=== PATIENT | female | born 1990 | race American Indian/Alaskan Native ===

== ENCOUNTER 2016-10-16 15:32 | Emergency (ER) | payer MEDICAID ==
[2016-10-16 16:13] VITALS: BP 117/72
--- NOTE | 2016-10-16 22:26 | Emergency Department Report ---
Entered by SILVIO CHOI, acting as scribe for ANGELINA FINCH NP. - General Chief complaint: Sore Throat Stated complaint: INSECT BITE/INFECTION Time Seen by Provider: 10/16/16 16:13 Source: patient Mode of arrival: Ambulatory Limitations: No Limitations - History of Present Illness Initial comments: This is 26 y/o female that is nontoxic, well nourished in appearance, no acute signs of distress with no significant PMHx presents to the ED c/o an unknown insect bite on left lower leg for 1 week. Patient states she was bitten by an unknown insect 1 week ago. Rates severity a 7/10. Patient reports associated swelling and erythema to affected area, but she denies fever, chills, nausea, vomiting, numbness, tingling, pus, drainage, chest pain, shortness of breathe. Notes the erythema has been spreading since onset. NKDA. Patient stated she is currently 14 weeks . Patient stated has no issues with and is following up with a OBGYN. Last menstrual cycle was 07/09/2016. complaint: insect bite/sting (unknown insect) Onset/Timin -: week(s) Location: LLE (left lower leg) Severity: moderate Severity scale (0 -10): 7 Quality: burning Consistency: constant Improves with: none Worsens with: none Context: other (unwitnessed insect bite) Associated symptoms: denies other symptoms, other (erythema and swelling to affected area) Treatments Prior to Arrival: none - Related Data Home Medications Medication Instructions Recorded Confirmed Last Taken Pnv with Ca,No.72/Iron/FA [Pnv 1 each PO DAILY 12/18/13 12/11/14 12/10/14 09:00 Plus Multivit Tab] 1 Previous Rx's Medication Instructions Recorded Last Taken Type Cephalexin [Keflex] 500 mg PO Q8HR 7 Days 10/16/16 Unknown Rx Allergies Allergy/AdvReac Type Severity Reaction Status Date / Time No Known Allergies Allergy Verified 10/16/16 16:08 Abscess Boil HPI - HPI Chief Complaint: Sore Throat Stated Complaint: INSECT BITE/INFECTION Time Seen by Provider: 10/16/16 16:13 Duration: 1 Week Location: Lower Extremity (left lower leg) Severity: Moderate (7/10) History: Yes Pain (to affected area on left lower leg), Yes Insect Bite ( possible unwitnessed insect bite), No Fever, No Purulent Drainage, No Numbness, No Foreign Body, No Previous History Home Medications: Home Medications Medication Instructions Recorded Confirmed Last Taken Pnv with Ca,No.72/Iron/FA [Pnv 1 each PO DAILY 12/18/13 12/11/14 12/10/14 09:00 Plus Multivit Tab] 1 Previous Rx's Medication Instructions Recorded Last Taken Type Cephalexin [Keflex] 500 mg PO Q8HR 7 Days 10/16/16 Unknown Rx Allergies/Adverse Reactions: Allergies Allergy/AdvReac Type Severity Reaction Status Date / Time No Known Allergies Allergy Verified 10/16/16 16:08 ED Review of Systems Comment: All other systems reviewed and negative Constitutional: denies: chills, fever Eyes: denies: eye pain, eye discharge, vision change ENT: denies: ear pain, throat pain Respiratory: denies: cough, shortness of breath, wheezing Cardiovascular: denies: chest pain, palpitations Endocrine: no symptoms reported Gastrointestinal: denies: abdominal pain, nausea, vomiting, diarrhea Genitourinary: denies: urgency, dysuria, discharge Musculoskeletal: denies: back pain, joint swelling, arthralgia Skin: other (left lower leg with erythema and swelling). denies: rash, lesions Neurological: denies: headache, weakness, numbness, paresthesias Psychiatric: denies: anxiety, depression Hematological/Lymphatic: denies: easy bleeding, easy bruising ED Past Medical Hx - Past Medical History Hx Hypertension: No Hx Congestive Heart Failure: No Hx Diabetes: No Hx Deep Vein Thrombosis: No Hx Renal Disease: No Hx Sickle Cell Disease: No Hx Seizures: No Hx Asthma: No Hx COPD: No Hx HIV: No - Social History Smoking Status: Never Smoker Substance Use Type: None - Medications Home Medications: Home Medications Medication Instructions Recorded Confirmed Last Taken Type Pnv with Ca,No.72/Iron/FA [Pnv 1 each PO DAILY 12/18/13 12/11/14 12/10/14 09:00 History Plus Multivit Tab] 1 Cephalexin [Keflex] 500 mg PO Q8HR 7 Days 10/16/16 Unknown Rx ED Physical Exam - General Limitations: No Limitations General appearance: alert, in no apparent distress - Head Head exam: Present: atraumatic, normocephalic, normal inspection - Eye Eye exam: Present: normal appearance, PERRL, EOMI. Absent: scleral icterus, conjunctival injection, nystagmus, periorbital swelling, periorbital tenderness Pupils: Present: normal accommodation - ENT ENT exam: Present: normal exam, normal orophraynx, mucous membranes moist, TM's normal bilaterally, normal external ear exam - Neck Neck exam: Present: normal inspection, full ROM. Absent: tenderness, meningismus, lymphadenopathy - Respiratory Respiratory exam: Present: normal lung sounds bilaterally. Absent: respiratory distress, wheezes, rales, rhonchi, stridor, chest wall tenderness, accessory muscle use, decreased breath sounds, prolonged expiratory - Cardiovascular Cardiovascular Exam: Present: regular rate, normal rhythm, normal heart sounds. Absent: bradycardia, tachycardia, irregular rhythm, systolic murmur, diastolic murmur, rubs, gallop - GI/Abdominal GI/Abdominal exam: Present: soft, normal bowel sounds. Absent: distended, tenderness, guarding, rebound, rigid, diminished bowel sounds - Rectal Rectal exam: Present: deferred - Extremities Exam Extremities exam: Present: full ROM, normal capillary refill, other (left lower leg is swollen and warm to touch with surrounding erythema ). Absent: tenderness, pedal edema, joint swelling, calf tenderness - Expanded Lower Extremity Exam Left Hip exam: Present: normal inspection, full ROM, external rotation, internal rotation, pelvic stability. Absent: tenderness, swelling, abrasion, laceration , ecchymosis, deformity, crepidus, dislocation, erythema, shortening Upper Leg exam: Present: normal inspection, full ROM. Absent: tenderness, swelling, abrasion, laceration, ecchymosis, deformity, crepidus, dislocation, erythema Knee exam: Present: normal inspection, full ROM, full knee extension. Absent: tenderness, swelling, abrasion, laceration, ecchymosis, deformity, crepidus, dislocation, erythema, effusion, pain w/ pronation/supination, posterior draw sign, pain/laxity with valgus, pain/laxity with varus Lower Leg exam: Present: full ROM, tenderness, swelling, erythema. Absent: abrasion, laceration, ecchymosis, deformity, crepidus, dislocation, palpable cord, Hitesh's sign Ankle exam: Present: normal inspection, full ROM. Absent: tenderness, swelling , abrasion, laceration, ecchymosis, deformity, crepidus, dislocation, erythema, anterior draw sign Foot/Toe exam: Present: normal inspection, full ROM. Absent: tenderness, swelling, abrasion, laceration, ecchymosis, deformity, crepidus, dislocation, erythema, amputation, puncture wound, foreign body, calcaneal tenderness, tenderness at base of 5th metatarsal, nail avulsion, subungual hematoma Neuro vascular tendon exam: Present: no vascular compromise. Absent: pulse deficit, abnormal cap refill, motor deficit, sensory deficit, tendon deficit, extremity cold to touch, pallor, abnormal 2-point discrimination, decreased fine /light touch, foot drop, peroneal nerve deficit, significant pain with passive ROM of distal joint Gait: Positive: observed and normal 1 - Warm to touch, erythema, and swelling - Back Exam Back exam: Present: normal inspection, full ROM. Absent: tenderness, CVA tenderness (R), CVA tenderness (L), muscle spasm, paraspinal tenderness, vertebral tenderness - Neurological Exam Neurological exam: Present: alert, oriented X3, CN II-XII intact, normal gait, reflexes normal. Absent: motor sensory deficit - Psychiatric Psychiatric exam: Present: normal affect, normal mood - Skin Skin exam: Present: warm, dry, intact. Absent: rash ED Course Vital Signs 10/16/16 16:08 Temperature 98.2 F Pulse Rate 86 Respiratory 18 Rate Blood Pressure 117/72 O2 Sat by Pulse 100 Oximetry - Reevaluation(s) Reevaluation #1: 10/16/16 17:40 Patient is able to speak in full sentences with no signs of distress noted. ED Medical Decision Making - Medical Decision Making Ed course: This is a 26-year-old female that presents for cellulitis 1- patient was examined by myself. Signs and symptoms are consistent with cellulites. patient will be treated with Keflex at d/c. 2- patient was instructed to follow up with her primary care doctor in 3-5 days or symptoms and signs worse return to emergency room as was possible. 3- I outlined the erythema with a permanent marker and instructed patient to observe symptoms of increased redness or swelling return to emergency room if they do exist. 4- At time time of discharge, the patient does not seem toxic or ill in appearance. No acute signs of distress noted. Patient agrees to discharge treatment plan of care. No further questions noted by the patient. ED Disposition Clinical Impression: Cellulitis Qualifiers: Site of cellulitis: extremity Site of cellulitis of extremity: lower extremity Laterality: left Qualified Code(s): L03.116 - Cellulitis of left lower limb Disposition: DC-01 TO HOME OR SELFCARE Is pt being admited?: No Does the pt Need Aspirin: No Condition: Stable Instructions: Cellulitis (ED), Cephalexin (By mouth) Additional Instructions: follow up with your primary care doctor in 3-5 days or symptoms and signs worse return to emergency room as was possible. observe symptoms of increased redness or swelling passed permanent marker and return to emergency room if these exist. Prescriptions: Cephalexin [Keflex] 500 mg PO Q8HR 7 Days Referrals: PRIMARY MD ELISHA [Primary Care Provider] - 3-5 Days CODY MORGAN MD [Staff Physician] - 3-5 Days [facility] - 3-5 Days [facility] [Outside] - 3-5 Days Forms: Work/School Release Form(ED) This documentation as recorded by the STEPH holm JASMINE,accurately reflects the service I personally performed and the decisions made by ,ANGELINA FINCH, TAX SERVICES SPECIALIST.
== END 2016-10-16 18:10 | disposition home or self-care (01) ==
LOC: ED 15:32
DX: S80.862A Insect bite (nonvenomous), left lower leg, initial encounter (principal); L03.116 Cellulitis of left lower limb; W57.XXXA Bitten or stung by nonvenomous insect and other nonvenomous arthropods, initial encounter; Y93.89 Activity, other specified; Y92.89 Other specified places as the place of occurrence of the external cause; Y99.8 Other external cause status
CPT/HCPCS: 99282

== ENCOUNTER 2016-11-23 15:44 | Emergency (ER) | payer MEDICAID ==
[2016-11-23 17:23] VITALS: BP 132/72
--- NOTE | 2016-11-23 17:50 | Emergency Department Report ---
ED Rash HPI - HPI Chief Complaint: Skin Rash Stated Complaint: CELLULITIS TO LEGS Time Seen by Provider: 11/23/16 17:41 Duration: over 1 week Location: Lower Extremities Suspected Cause: Unknown Rash Symptoms: Yes Itching, No Facial Swelling, No Tongue/Oral Swelling, No Breathing Difficulties, No Choking Sensation, No Wheezing/Dyspnea, No Peeling, No Blistering, No Fever, No Lightheaded, No Malaise, No Myalgias Severity: mild ED Review of Systems ROS: Stated complaint: CELLULITIS TO LEGS Other details as noted in HPI Constitutional: denies: chills, fever Eyes: denies: eye pain ENT: denies: ear pain, throat pain Gastrointestinal: denies: abdominal pain, nausea Musculoskeletal: denies: back pain, arthralgia Skin: rash. denies: change in color ED Past Medical Hx - Past Medical History Hx Hypertension: No Hx Congestive Heart Failure: No Hx Diabetes: No Hx Deep Vein Thrombosis: No Hx Renal Disease: No Hx Sickle Cell Disease: No Hx Seizures: No Hx Asthma: No Hx COPD: No Hx HIV: No - Social History Smoking Status: Never Smoker Substance Use Type: None - Medications Home Medications: Home Medications Medication Instructions Recorded Confirmed Last Taken Type Pnv with Ca,No.72/Iron/FA [Pnv 1 each PO DAILY 12/18/13 12/11/14 12/10/14 09:00 History Plus Multivit Tab] 1 Cephalexin [Keflex] 500 mg PO Q8HR 7 Days 10/16/16 Unknown Rx Hydrocortisone 1% [Hydrocortisone 1 applicatio TP BID #1 tube 11/23/16 Unknown Rx 1% CREAM] Rash Exam - Exam General: Vital signs noted. No distress. Alert and acting appropriately. HEENT: No Periorbital Edema, No Conjuctival Injection, No Chemosis, No Perioral Edema, No Tongue Edema, No Uvular Edema, No Compromised Airway, No Drooling Lungs: Yes Good Air Exchange, No Wheezes, No Ronchi, No Stridor, No Cough, No Labored Respirations, No Retractions, No Use of Accessory Muscles, No Other Abnormal Lung Sounds Skin: Yes Maculopapular Rash, Yes Excoriations, No Urticarial Rash, No Morbilliform rash, No Weeping, No Tenderness, No Erythema, No Edema, No Encrustations, No Other Other: Positive: Neurologic Normal, Musculoskeletal Normal ED Course Vital Signs 11/23/16 17:19 Temperature 98.3 F Pulse Rate 103 H Respiratory 16 Rate Blood Pressure 132/72 O2 Sat by Pulse 98 Oximetry ED Medical Decision Making - Medical Decision Making Patient with rash on lower legs consistent with eczema. Patient was recently on antibiotics without any improvement and rash. Plan to treat with topical steroids and will discharge patient home. Discussed risks and benefits of steroids and her situation given that she is . Patient understands and will use the low dose hydrocortisone. Portions of this chart were dictated with dictation software. There may be dictation errors contained within this note. Critical care attestation.: If time is entered above; I have spent that time in minutes in the direct care of this critically ill patient, excluding procedure time. ED Disposition Clinical Impression: Eczema Disposition: DC-01 TO HOME OR SELFCARE Is pt being admited?: No Condition: Stable Instructions: Eczema (ED) Prescriptions: Hydrocortisone 1% [Hydrocortisone 1% CREAM] 1 applicatio TP BID #1 tube Referrals: PRIMARY CARE, [Primary Care Provider] - 3-5 Days
== END 2016-11-23 19:36 | disposition home or self-care (01) ==
LOC: ED 15:44
DX: L30.9 Dermatitis, unspecified (principal)
CPT/HCPCS: 99282

== ENCOUNTER 2018-12-24 20:15 | Emergency (ER) | payer MEDICAID, OTHER ==
--- NOTE | 2018-12-24 20:44 | Event Note ---
ED Screening Note Date of service: 12/24/18 Time: 20:41 ED Screening Note: 28 y/o female comes in with abdominal pain since 2 pm. Pain located middle. Nausea. No fever no chill. LMP 11/14/18. . No vag discharge no vag bleeding. This initial assessment/diagnostic orders/clinical plan/treatment(s) is/are subject to change based on patients health status, clinical progression and re- assessment by fellow clinical providers in the ED. Further treatment and workup at subsequent clinical providers discretion. Patient/guardian urged not to elope from the ED as their condition may be serious if not clinically assessed and managed. Initial orders include:
[2018-12-24 21:19] LABS: Basophils # (Auto) 0.1 K/mm3 (0.0-0.1); Basophils % (Auto) 0.9 % (0.0-1.8); Eosinophils # (Auto) 0.1 K/mm3 (0.0-0.4); Hemoglobin 10.4 gm/dl (10.1-14.3); Lymphocytes # (Auto) 1.5 K/mm3 (1.2-5.4); Lymphocytes % (Auto) 13.9 % (13.4-35.0); Mean Corpuscular HGB Conc 32 % (30-34); Mean Corpuscular Volume 76 fl (79-97); Monocytes # (Auto) 0.8 K/mm3 (0.0-0.8); Monocytes % (Auto) 7.7 % (0.0-7.3); Platelet Count 317 K/mm3 (140-440); Red Blood Count 4.35 M/mm3 (3.65-5.03); Red Cell Distribution Width 19.4 % (13.2-15.2)
[2018-12-24 21:43] LABS: Alanine Aminotransferase 10 units/L (7-56); Albumin 4.4 g/dL (3.9-5); BUN/Creatinine Ratio 22; Blood Urea Nitrogen 13 mg/dL (7-17); Calcium 8.9 mg/dL (8.4-10.2); Hemolysis Index 0
--- NOTE | 2018-12-24 21:56 | Emergency Department Report ---
ED Abdominal Pain HPI - General Chief Complaint: Abdominal Pain Stated Complaint: SEVERE ABDOMINAL PAIN/HERNIA Time Seen by Provider: 12/24/18 21:45 Source: patient Mode of arrival: Ambulatory Limitations: No Limitations - History of Present Illness Initial Comments: Patient is a 28-year-old female that presents emergency room with complaints of abdominal pain. Patient states abdominal pain is in her umbilical region at the hernia site. Patient states had umbilical hernia for many years. Patient states that the hernia was hard. MD Complaint: abdominal pain -: Sudden Location: periumbilical Radiation: none Migration to: no migration Severity: severe Severity scale (0 -10): 10 Quality: stabbing Consistency: constant Improves With: rest Worsens With: movement Associated Symptoms: denies: nausea, vomiting, diarrhea, fever, chills, constipation, dysuria, hematemesis, hematochezia, melena, hematuria, anorexia, syncope - Related Data LMP (females 10-50): last week Home Medications Medication Instructions Recorded Confirmed Last Taken Pnv,Calcium 72/Iron/Folic Acid 1 each PO DAILY 12/18/13 12/11/14 12/10/14 09:00 [Pnv Plus Multivit Tab] 1 Previous Rx's Medication Instructions Recorded Last Taken Type cephALEXin [Keflex] 500 mg PO Q8HR 7 Days cap 10/16/16 Unknown Rx Hydrocortisone 1% [Hydrocortisone 1 applicatio TP BID #1 tube 11/23/16 Unknown Rx 1% CREAM] metroNIDAZOLE [Flagyl] 500 mg PO Q12HR 10 Days #20 tab 12/24/18 Unknown Rx Allergies Allergy/AdvReac Type Severity Reaction Status Date / Time latex Allergy Hives Verified 11/23/16 17:19 ED Review of Systems ROS: Stated complaint: SEVERE ABDOMINAL PAIN/HERNIA Other details as noted in HPI Constitutional: denies: chills, fever Eyes: denies: eye pain, eye discharge, vision change ENT: denies: ear pain, throat pain Respiratory: denies: cough, shortness of breath, wheezing Cardiovascular: denies: chest pain, palpitations Endocrine: no symptoms reported Gastrointestinal: abdominal pain. denies: nausea, diarrhea Genitourinary: denies: urgency, dysuria, discharge Musculoskeletal: denies: back pain, joint swelling, arthralgia Skin: denies: rash, lesions Neurological: denies: headache, weakness, paresthesias Psychiatric: denies: anxiety, depression Hematological/Lymphatic: denies: easy bleeding, easy bruising ED Past Medical Hx - Past Medical History Previous Medical History?: No Hx Hypertension: No Hx Congestive Heart Failure: No Hx Diabetes: No Hx Deep Vein Thrombosis: No Hx Renal Disease: No Hx Sickle Cell Disease: No Hx Seizures: No Hx Asthma: No Hx COPD: No Hx HIV: No - Surgical History Past Surgical History?: No - Family History Family history: no significant - Social History Smoking Status: Never Smoker Substance Use Type: None - Medications Home Medications: Home Medications Medication Instructions Recorded Confirmed Last Taken Type Pnv,Calcium 72/Iron/Folic Acid 1 each PO DAILY 12/18/13 12/11/14 12/10/14 09:00 History [Pnv Plus Multivit Tab] 1 cephALEXin [Keflex] 500 mg PO Q8HR 7 Days cap 10/16/16 Unknown Rx Hydrocortisone 1% [Hydrocortisone 1 applicatio TP BID #1 tube 11/23/16 Unknown Rx 1% CREAM] metroNIDAZOLE [Flagyl] 500 mg PO Q12HR 10 Days #20 tab 12/24/18 Unknown Rx ED Physical Exam - General Limitations: No Limitations General appearance: alert, in no apparent distress - Head Head exam: Present: atraumatic, normocephalic - Eye Eye exam: Present: normal appearance - ENT ENT exam: Present: mucous membranes moist - Neck Neck exam: Present: normal inspection - Respiratory Respiratory exam: Present: normal lung sounds bilaterally. Absent: respiratory distress - Cardiovascular Cardiovascular Exam: Present: regular rate, normal rhythm. Absent: systolic mu rmur, diastolic murmur, rubs, gallop - GI/Abdominal GI/Abdominal exam: Present: soft, tenderness (over umbilical hernia site but hernias completely reducible.), normal bowel sounds - Extremities Exam Extremities exam: Present: normal inspection - Back Exam Back exam: Present: normal inspection - Neurological Exam Neurological exam: Present: alert, oriented X3 - Psychiatric Psychiatric exam: Present: normal affect, normal mood - Skin Skin exam: Present: warm, dry, intact, normal color. Absent: rash ED Course Vital Signs 12/24/18 12/24/18 12/24/18 20:41 21:50 22:01 Temperature 98.2 F Pulse Rate 67 Respiratory 16 18 Rate Blood Pressure 119/74 121/76 O2 Sat by Pulse 100 100 100 Oximetry 12/24/18 12/25/18 22:35 01:00 Temperature 98.2 F Pulse Rate 67 Respiratory Rate Blood Pressure 121/76 O2 Sat by Pulse 90 90 Oximetry ED Medical Decision Making - Lab Data Result diagrams: 12/24/18 21:05 12/24/18 21:05 - Radiology Data Radiology results: report reviewed CT abdomen pelvis w con INDICATION / CLINICAL INFORMATION: abs pain. ttp over hernia. TECHNIQUE: All CT scans at this location are performed using CT dose reduction for ALARA by means of automated exposure control. COMPARISON: None available. FINDINGS: Limited lower thoracic images are negative. ABDOMEN: The gallbladder, liver, spleen, pancreas and kidneys are normal. No small bowel dilatation. Fat-containing umbilical hernia noted. There is a edema of the transverse colon. Pelvis: The appendix is normal. There are no dependent fluid collections seen within the pelvis. No skeletal abnormality. IMPRESSION: 1. Mild edematous changes in the transverse colon are suggestive of nonspecific colitis. 2. Nonobstructing umbilical hernia containing fat. - Medical Decision Making Is a 28-year-old female that presents emergency room with complaints of abdominal pain. Patient ago. It is periumbilical. Patient has an umbilical hernia. Patient's bilirubin is reproducible. Patient's CT shows a fat filled umbilical hernia and colitis. Patient given antibiotics. Patient stable for discharge. Patient discharged home. Prior to discharge patient complaining of mild nausea and pain. Patient was given Zofran and Toradol. - Differential Diagnosis gastroenteritis. Incarcerated hernia. Abdominal pain. Critical care attestation.: If time is entered above; I have spent that time in minutes in the direct care of this critically ill patient, excluding procedure time. ED Disposition Clinical Impression: Colitis Abdominal pain Qualifiers: Abdominal location: periumbilical Qualified Code(s): R10.33 - Periumbilical pain Umbilical hernia Qualifiers: Obstruction and gangrene presence: without obstruction or gangrene Qualified Code(s): K42.9 - Umbilical hernia without obstruction or gangrene Disposition: -01 TO HOME OR SELFCARE Is pt being admited?: No Does the pt Need Aspirin: No Condition: Stable Instructions: Umbilical Hernia (ED), Abdominal Pain (ED), Infectious Colitis (ED) Additional Instructions: Patient to follow-up with primary care in 2-3 days. patient To follow up with agricultural pilot in 2-3 days. Patient to return to ER if condition worsens. Patient to take medications as directed. Patient to follow-up with Gen. surgery, Dr. Aleman in 2-3 days. Patient to take Tylenol or ibuprofen when nece ssary for pain. Patient to eat a brat diet. Patient to rest. Patient to increase water. Prescriptions: metroNIDAZOLE [Flagyl] 500 mg PO Q12HR 10 Days #20 tab Referrals: RANDY ALEMAN MD [Staff Physician] - 2-3 Days ALBURTIS NANCYHENRIETTA MD OLVIN [Primary Care Provider] - 2-3 Days TED CHICAS MD [Staff Physician] - 2-3 Days Time of Disposition: 23:44
[2018-12-24 22:43] VITALS: BP 121/76
--- NOTE | 2018-12-24 23:28 | Cat Scan Report ---
CT abdomen pelvis w con INDICATION / CLINICAL INFORMATION: abs pain. ttp over hernia. TECHNIQUE: All CT scans at this location are performed using CT dose reduction for ALARA by means of automated e xposure control. COMPARISON: None available. FINDINGS: Limited lower thoracic images are negative. ABDOMEN: The gallbladder, liver, spleen, pancreas and kidneys are normal. No small bowel dilatation. Fat-containing umbilical hernia noted. There is a edema of the transverse colon. Pelvis: The appendix is normal. There are no dependent fluid collections seen within the pelvis. No skeletal abnormality. IMPRESSION: 1. Mild edematous changes in the transverse colon are suggestive of nonspecific colitis. 2. Nonobstructing umbilical hernia containing fat. Signer Name: Rod Chan MD Signed: 12/24/2018 11:24 PM Workstation Name: [id number]
[2018-12-25] MEDS ORDERED: TORADOL ONE (00:10)
[2018-12-25] MEDS ORDERED: ZOFRAN ODT ONE (00:10)
[2018-12-25] MEDS ORDERED: TORADOL IM ONE (00:12)
[2018-12-25] MEDS ORDERED: ZOFRAN ODT PO ONE (00:13)
== END 2018-12-25 01:01 | disposition home or self-care (01) ==
LOC: ED 20:15
DX: K42.9 Umbilical hernia without obstruction or gangrene (principal); K52.9 Noninfective gastroenteritis and colitis, unspecified; Z91.040 Latex allergy status; Z79.899 Other long term (current) drug therapy
CPT/HCPCS: 36415; 74177; 80053; 83690; 84703; 85025; 96372; 99284; J1885; Q9967; Q0162